=== PATIENT | male | born 1940 | race Caucasian/White ===

== ENCOUNTER 2017-01-02 07:08 | Day surgery (SDC) | payer MEDICARE, OTHER ==
--- NOTE | ~2017-01-02 | EGD ---
EGD REPORT [facility] [address] [place] [address] NAME: MARTIR PASCUAL : [birth year] STATUS : REG [facility]#: [id number] AGE: 76 ADM/REG DATE : 01/02/17 MR#: [id number] REPORT SERV DATE: 01/02/17 DICTATED BY: DATE: REPORT STATUS : Draft TRANSCRIBED BY: [employer] DATE: 01/02/17 [facility] Patient Name: Martir Pascual Date of : 1940 Attending MD: SHANNA BOWMAN MD Procedure Date No Time: 01/02/2017 Procedure: Upper GI endoscopy Indications: Abdominal pain in the right upper quadrant Referring MD: QUIQUE PERSON Medicines: See the Anesthesia note for documentation of the administered medications Complications: No immediate complications. Estimated blood loss: None. Procedure: Pre-Anesthesia Assessment: - ASA Grade Assessment: III - A patient with severe systemic disease. - Prior to the procedure, a History and Physical was performed, and patient medications and allergies were reviewed. The patient's tolerance of previous anesthesia was also reviewed. The risks and benefits of the procedure and the sedation options and risks were discussed with the patient. All questions were answered, and informed consent was obtained. Prior Anticoagulants: The patient has taken no previous anticoagulant or antiplatelet agents. After reviewing the risks and benefits, the patient was deemed in satisfactory condition to undergo the procedure. After obtaining informed consent, the endoscope was passed under direct vision. Throughout the procedure, the patient's blood pressure, pulse, and oxygen saturations were monitored continuously. The GIF [id number] was introduced through the mouth, and advanced to the second part of duodenum. The upper GI endoscopy was accomplished without difficulty. The patient tolerated the procedure well. Findings: A medium-sized diverticulum was found in the second part of the duodenum. The examined duodenum was normal. Biopsies were taken with a cold forceps for histology. The entire examined stomach was normal. Biopsies were taken with a cold forceps for histology. The cardia and gastric fundus were normal on retroflexion. The examined esophagus was normal. Impression: - Duodenal diverticulum. EGD REPORT [address] [address] NAME: MARTIR PASCUAL : [birth year] STATUS : REG [facility]#: [id number] AGE: 76 ADM/REG DATE : 01/02/17 MR#: [id number] REPORT SERV DATE: 01/02/17 DICTATED BY: DATE: REPORT STATUS : Draft TRANSCRIBED BY: [email or web address] DATE: 01/02/17 - Normal examined duodenum. Biopsied. - Normal stomach. Biopsied. - Normal esophagus. Recommendation: - Patient has a contact number available for emergencies. The signs and symptoms of potential delayed complications were discussed with the patient. Return to normal activities tomorrow. Written discharge instructions were provided to the patient. - Regular diet. - Discharge patient to home. - Continue present medications. - Await pathology results. - Discharge patient to home. Procedure Code(s): --- Professional --- 26625, Esophagogastroduodenoscopy, flexible, transoral; with biopsy, single or multiple Diagnosis Code(s): --- Professional --- K57.10, Diverticulosis of small intestine without perforation or abscess without bleeding R10.11, Right upper quadrant pain CPT copyright 2013 [employer]. All rights reserved. The codes documented in this report are preliminary and upon school physical therapist review may be revised to meet current compliance requirements. SHANNA BOWMAN MD 01/02/2017 8:44 AM This report has been signed electronically. Number of Addenda: 0 Note Initiated On: 01/02/2017 8:28 AM Scope Withdrawal Time 0 hours 0 minutes 0 seconds [address] [place] [address]
[~2017-01-02 07:08] MED LIST: CHERATUSSIN PO; COQ10100 MG OR; I20 PO; LEVAQUIN750 MG PO; LOPID6 PO; PEP20 PO; TRAZ100 PO; VIT/HERBS
== END 2017-01-02 23:59 | disposition home or self-care (01) ==
LOC: DMU 07:08
PROVIDERS: Internal Medicine Gastroenterology
PROC: 0DB68ZX Excision of Stomach, Via Natural or Artificial Opening Endoscopic, Diagnostic (ICD-10-PCS; 2017-01-02)
PROC: 0DB98ZX Excision of Duodenum, Via Natural or Artificial Opening Endoscopic, Diagnostic (ICD-10-PCS; principal; 2017-01-02 08:30)
DX: K29.80 Duodenitis without bleeding (principal); K29.50 Unspecified chronic gastritis without bleeding; I25.10 Atherosclerotic heart disease of native coronary artery without angina pectoris; E78.00 Pure hypercholesterolemia, unspecified; Z95.1 Presence of aortocoronary bypass graft; Z86.73 Personal history of transient ischemic attack (TIA), and cerebral infarction without residual deficits; Z85.118 Personal history of other malignant neoplasm of bronchus and lung; Z88.8 Allergy status to other drugs, medicaments and biological substances; Z87.891 Personal history of nicotine dependence; Z98.890 Other specified postprocedural states
CPT/HCPCS: 88305